=== PATIENT | female | born 1995 | race Caucasian/White ===

== ENCOUNTER 2020-02-04 13:40 | Outpatient (RCR) | payer OTHER, MEDICAID, SELFPAY | END 2020-05-02 23:59 | disposition home or self-care (01) | LOC: ANHLAB 13:40 | PROVIDERS: PCP Nurse Practitioner Family; Visit Provider Advanced Practice Midwife | DX: O20.0 Threatened abortion (principal); Z3A.00 Weeks of gestation of pregnancy not specified | CPT/HCPCS: 36415; 84702 ==

== ENCOUNTER 2020-02-14 10:12 | Emergency (ER) | payer OTHER, MEDICAID, SELFPAY ==
[2020-02-14 10:24] VITALS: BP 140/88; PULSE 122; RESP 18; TEMP 36.4; O2SAT 100
[2020-02-14 10:29] VITALS: BP 140/88; BP 148/95; BP 164/111; PULSE 120; PULSE 125; PULSE 133
[2020-02-14 10:48] LABS: Basophils Percent Auto 0.4 % (0.2-1.2); Eosinophils Percent Auto 0.3 % (0-4.4); Hematocrit 36.6 % (37.0-47.0); Hemoglobin 11.6 g/dL (12.0-15.0); Immature Granulocyte Absolute 0.02 K/mm3 (0.00-0.031); Immature Granulocyte Percent A 0.3 % (0-0.5); Lymphocytes Absolute Auto 1.97 K/mm3 (0.9-3.2); Lymphocytes Percent Auto 24.8 % (18.3-44.2); Mean Corpuscular HGB Conc 31.7 g/dl (32-36); Mean Corpuscular Hemoglobin 26.2 pg (26-34); Mean Corpuscular Volume 82.8 fl (80-100); Mean Platelet Volume 9.6 fl (7.4-10.4); Monocytes Absolute Auto 0.3 K/mm3 (0.1-0.6); Monocytes Percent Auto 4.2 % (2.6-8.5); Neutrophils Absolute Auto 5.6 K/mm3 (1.3-6.7); Platelet Count Result 341 k/mm3 (150-375); Red Blood Count 4.42 M/mm3 (4.2-5.4); White Blood Count 7.9 K/mm3 (4.5-10.0)
--- NOTE | 2020-02-14 11:11 | PC.NURSE ---
received report from Jennifer DA SILVA. patient here with vaginal bleeding and miscarriage. patient was 8 weeks per her report. provider here has discussed patient with her current OB. had ultrasound done in their office yesterday. see notes. no change in condition. alert. oriented. resting on stretcher.
--- NOTE | 2020-02-14 12:02 | ED.ABDPAIN ---
HPI - Abdominal Pain General Chief Complaint: Vaginal Bleeding <Vin Paulino PA-C - Last Filed: 02/14/20 17:58> Stated Complaint: 8 weeks /bleeding/lightheaded <Vin Paulino PA-C - Last Filed: 02/14/20 17:58> Time Seen by Provider: 02/14/20 10:14 <Vin Paulino PA-C - Last Filed: 02/14/20 17:58> Source: patient <Vin Paulino PA-C - Last Filed: 02/14/20 17:58> Mode of arrival: ambulatory <Vin Paulino PA-C - Last Filed: 02/14/20 17:58> Limitations: no limitations <Vin Paulino PA-C - Last Filed: 02/14/20 17:58> History of Present Illness HPI narrative: Patient presents for dark vaginal bleeding and cramping. She states she was seen at [facility] [place] 1 week ago and was told that she did not have growth and was having a miscarriage. She was prescribed Cytotec which she took Thursday and began having worsening cramps and bleeding. She states Thursday and Thursday she had more bleeding but has not noticed large pieces of tissue or large blood clots. She states the bleeding is minimal today but dark and she has had more cramping which alarmed her and made her feel lightheaded, panicked and momentarily short of breath. Which resolved completely once she calmed down. Patient states she is and this is her 4th miscarriage but the other was by d&c and two natural miscarriages.She states her OBGYN is Dr Long. . <Vin Paulino PA-C - Last Filed: 02/14/20 17:58> Related Data Allergies/Adverse Reactions: Allergies Allergy/AdvReac Type Severity Reaction Status Date / Time No Known Allergies Allergy Verified 02/14/20 10:30 <Vin Paulino PA-C - Last Filed: 02/14/20 17:58> Review of Systems Review of Systems: Narrative: CONSTITUTIONAL: Reports feeling light headed Denies fever, chills, or sweats. EYES: Denies visual changes, redness, or discharge. ENT: Denies rhinorrhea, congestion, sore throat, or otalgia. CARDIOVASCULAR: Denies chest pain, palpitations, or edema. RESPIRATORY: Denies cough or dyspnea. GASTROINTESTINAL: Denies abdominal pain, nausea, vomiting, or diarrhea. GENITOURINARY: Reports vaginal bleeding and pelvic cramping Denies dysuria or hematuria. SKIN: Denies rash or itching. MUSCULOSKELETAL: Denies back pain, myalgia, or joint pain NEUROLOGIC: Denies headache, numbness, dizziness, or weakness. PSYCHIATRIC: Denies anxiety or depression. <Vin Paulino PA-C - Last Filed: 02/14/20 17:58> Exam Narrative: Exam Narrative: GENERAL: Well-appearing, well-nourished. HEAD: Normocephalic, atraumatic. EYES: PERRLA and EOMI. NECK: Supple. No adenopathy or masses. No vertebral tenderness or loss of ROM. CHEST: Clear to auscultation. No respiratory distress. No wheezes rales or rhonchi HEART: Regular rate and rhythm. Normal peripheral pulses. ABDOMEN: Soft, nontender, nondistended, normal active bowel sounds. No bruises noted. PELVIC:Cervix open minimally. Dark blood and mucus coming from cervix no blood clots or large pieces of tissue appreciated expelling the pelvis or in vaginal canal. Exam tender for patient. EXTREMITIES: No acute changes in ROM. No edema. SKIN: Warm, dry, no rash. NEURO: No focal deficits. Alert and oriented x3. PSYCH: Normal mood and affect. <Vin Paulino PA-C - Last Filed: 02/14/20 17:58> Course Vital Signs Vital signs: Vital Signs Temperature 97.6 F 02/14/20 10:24 Pulse Rate 122 H 02/14/20 10:24 Respiratory Rate 18 02/14/20 10:24 Blood Pressure 140/88 02/14/20 10:24 Pulse Oximetry 100 02/14/20 10:24 Temperature 97.6 F 02/14/20 10:24 Pulse Rate 88 02/14/20 13:18 Respiratory Rate 16 02/14/20 13:18 Blood Pressure 131/83 02/14/20 13:18 Pulse Oximetry 98 02/14/20 13:18 <Vin Paulino PA-C - Last Filed: 02/14/20 17:58> Vital Signs Temperature 97.6 F 02/14/20 10:24 Pulse Rate 122 H 02/14/20 10:24 Respiratory Rate 18 02/14/20 10:24
[2020-02-14] MEDS: ONDANSETRON INJ 4 MG/2 ML VIAL IV PUSH (12:09)
[2020-02-14] MEDS: KETOROLAC 30 MG/ML VIAL (*BKC) (12:39)
[2020-02-14 13:18] VITALS: BP 131/83; PULSE 88; RESP 16; O2SAT 98
== END 2020-02-14 13:37 | disposition home or self-care (01) ==
PROVIDERS: Physician Assistant; Emergency Provider General Practice; PCP Nurse Practitioner Family
DX: O03.4 Incomplete spontaneous abortion without complication (principal)
CPT/HCPCS: 36415; 84702; 85025; 85461; 96365; 96375; 99284; J0131; J1885; J2405

== ENCOUNTER 2020-02-22 00:30 | Day surgery (SDC) | payer OTHER, MEDICAID, SELFPAY ==
[2020-02-21 09:19] VITALS: BMI 52.2
--- NOTE | 2020-02-21 09:37 | WPDANESEPPF ---
Anes - Initial Pre Proc Eval Procedure: Operation Date: 02/22/20 08:30 Proposed Procedures p Suction Dilatation and Curettage - Omaira Long MD Date/Time: 02/21/20 09:37 Surgeon: Omaira Long MD Pre Op Diagnosis: missed AB Patient Data Age: 24 Gender: F Height: 1.63 m Weight: 138.2 kg Allergies Allergy/AdvReac Type Severity Reaction Status Date / Time No Known Allergies Allergy Verified 02/22/20 06:59 Home Medications Medication Instructions Recorded Confirmed Type No Home Medications 02/21/20 02/22/20 History Patient hx anesthesia problems: none Family hx anesthesia problems: none [facility] Past Medical History Medical History (Updated 02/21/20 @ 09:38 by Sim White MD) Bipolar 1 disorder Depression HTN (hypertension) Morbid obesity with BMI of 50.0-59.9, adult Social History Social History Years smoked: 3 Smoking status: Current every day smoker Tobacco type: cigarettes Living arrangements: with family Spiritual care concerns: No Anes - Eval Final PreProcedure Day of Procedure 02/21/20 09:37 Patient weight: super morbidly obese Heart: regular rate and rhythm Lungs: clear to auscultation and normal air movement Airway: Mallampati scale class II Neurological: alert and oriented Last oral intake: >/= 8 hours ASA classification: III Emergent: no Anesthetic plan: proceed Anesthesia type and monitoring: general LMA and ETT Informed Consent: The patient's anesthetic plan and its attendant risks and benefits were discussed with the patient/family/POA. Questions were solicited and answers provided to the satisfaction of the patient/family/POA.
[2020-02-22] VITALS (7 sets, daily range): BP systolic 95–119; BP diastolic 47–58; PULSE 98–113; RESP 16–27; TEMP 36.4–37; O2SAT 96–100
[2020-02-22] MEDS: ACETAMINOPHEN 500 MG TABLET 1000 MG PO (07:39)
[2020-02-22] MEDS: LACTATED RINGERS 1,000 ML 30 ML IV CONT (07:39)
--- NOTE | 2020-02-22 08:04 | PM.IMHP ---
H&P: HPI History of Present Illness Date/Time: 02/22/20 08:04 Chief complaint: missed AB Narrative: Mora Trent is a 24 year old female now with 4 consecutive miscarriages. Failed cytotec x2 this time, US on Thursday showed retained POC and she has had continued light bleeding and cramping. Opos. 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 Review of Systems Review of Systems: All systems reviewed & are unremarkable except as noted in HPI and below (HPI) [facility] Past Medical History Medical History Bipolar 1 disorder Depression HTN (hypertension) Morbid obesity with BMI of 50.0-59.9, adult Social History Social History Years smoked: 3 Smoking status: Current every day smoker Tobacco type: cigarettes Living arrangements: with family Spiritual care concerns: No Meds Home Medications and Allergies Home Medications Medication Instructions Recorded Confirmed Type No Home Medications 02/21/20 02/22/20 History Allergies Allergy/AdvReac Type Severity Reaction Status Date / Time No Known Allergies Allergy Verified 02/22/20 06:59 Vital Signs Vital Signs - 24 hr 02/22/20 06:45 Temperature 98.6 F Pulse Rate 111 H Respiratory Rate 18 Blood Pressure 119/52 L Pulse Oximetry 100 Exam Const: General: no acute distress Neck: Neck: no JVD Thyroid: thyroid normal Resp: Auscultation: clear to auscultation bilaterally Cardio: Rate: regular rate Rhythm: regular rhythm GI: GI Palp: Yes Soft to palpation : Other: deferred Skin: General skin exam: normal color Extrem: General: normal to inspection Psych: Mental Status: mental status grossly normal Affect: normal affect Assessment and Plan Additional Plan Discussed RBA of D and C including bleeding, infection, perforation, scarring, retained POC. All questions answered. Will proceed O pos- no Rhogam needed doxy periop FU 1 week
--- NOTE | 2020-02-22 08:10 | P.OP_ITS ---
Procedure Note - Detailed Date of procedure: 02/22/20 Pre-op diagnosis: missed AB Post-op diagnosis: same Procedure performed: suction D and C Description of procedure: The patient was taken to the operating room and placed in dorsal lithotomy position. She received anesthesia per above. She was placed in stirrups and prepped and draped in the usual fashion. A bimanual exam showed a normal anteverted uterus, approximately 7w size. A bivalve speculum was introduced into the vagina. The anterior lip of the cervix was grasped with a single tooth tenaculum. The cervix was dilated in serial fashion to accomodate a #7 curved curette. The suction curette was tested outside of the patient and found to be working appropriately. The curette was then gently advanced into the uterine cavity. Several passes were made removing all products of conception. Once five passes were made obtaining no further products, the procedure was complete. The specimen was sent to pathology, including cytogenetics. The tenaculum was removed and hemostasis was noted after pressure. The speculum was removed. The patient tolerated the procedure well and was taken to the recovery room in stable condition. Anesthesia: GETA Surgeon: Omaira Long MD Associate Relations Specialist: none Estimated blood loss (mL): 10 Drains: No Packing: No Pathology: yes Complications: No immediate complications Condition: stable Disposition: same day Findings:
[2020-02-22] MEDS: KETOROLAC 30 MG/ML VIAL (*BKC) IM (08:51)
[2020-02-22] MEDS: ONDANSETRON INJ 4 MG/2 ML VIAL IV PUSH (09:04)
[2020-02-22] MEDS: fentaNYL CITRATE INJ (*CRX) 100 MCG/2 ML VIAL 25 MCG IV PUSH ×2 (09:08→09:16)
[2020-02-22] MEDS: HYDROcodone/acetaminophen (*CRX) 5-325 MG TABLET 1 TAB PO (10:48)
== END 2020-02-22 10:55 | disposition home or self-care (01) ==
PROVIDERS: PCP Nurse Practitioner Family; Visit Provider Obstetrics & Gynecology
PROC: (CPT 59820; principal; 2020-02-22 08:30)
DX: O02.1 Missed abortion (principal); I10 Essential (primary) hypertension; F31.9 Bipolar disorder, unspecified; F17.210 Nicotine dependence, cigarettes, uncomplicated
CPT/HCPCS: 59820; 88305; A9270; J0330; J1100; J1885; J2250; J2405; J2704; J3010; J7120

== ENCOUNTER 2020-07-01 10:23 | Emergency (ER) | payer OTHER, MEDICAID, SELFPAY ==
[2020-07-01 10:40] VITALS: BP 183/98; PULSE 124; RESP 18; TEMP 37.3; O2SAT 100
--- NOTE | 2020-07-01 11:07 | ED.GENADULT ---
HPI - General Adult General Chief complaint: Back Pain/Injury Stated complaint: right side lower back pain Time Seen by Provider: 07/01/20 11:09 Source: patient and RN notes reviewed Mode of arrival: ambulatory Limitations: no limitations History of Present Illness HPI narrative: 24-year-old female presents with complaints of right lower back pain for the past 3 days. Mora reports increasing symptoms daily. Naproxen and Flexeril without relief. Denies new injuries or falls. Denies radiating pain, numbness, or tingling. Denies fever or chills. No upper or lower extremity pain or weakness. Exacerbating factors consist of prolong standing and bending. Denies nausea, vomiting, or abdominal pain. Tolerating po intake well. Denies problems with urinating or having a bowel movement, LBM on 06/30/2020 per patient and normal. No flank pain, hematuria, or dysuria. LMP 06/24/2020. Remains active. The patient reports she have not been diagnosed with COVID-19. The patient reports she is not waiting for the results of a COVID-19 lab test. The patient reports she do not have weakness or fatigue. The patient reports she do not have a new or worsening cough or shortness of breath. Denies chest pain. The patient reports she do not have any rhinorrhea, congestion, sore throat, loss of taste or smell, and diarrhea. Denies recent traveling. Denies concerns for COVID-19 or exposures been home with limited outdoor exposure except for essential household needs and return home. At this time, patient is not suspected of having COVID-19. Some parts of this dictation were generated by voice recognition software and may contain typographical and/or grammatical inaccuracies. Related Data Allergies Allergy/AdvReac Type Severity Reaction Status Date / Time No Known Allergies Allergy Verified 07/01/20 10:31 Review of Systems Review of Systems: Narrative: CONSTITUTIONAL: Denies fever, chills, sweats. EYES: Denies visual changes, redness, discharge. ENT: Denies rhinorrhea, congestion, sore throat, otalgia. CARDIOVASCULAR: Denies chest pain, palpitations, edema. RESPIRATORY: Denies dyspnea, wheezing, cough. GASTROINTESTINAL: Denies abdominal pain, nausea, vomiting, diarrhea. GENITOURINARY: Denies dysuria, hematuria, abnormal discharge. SKIN: Denies rash or itching. MUSCULOSKELETAL: Complains of RT lower back pain. Denies joint pain or myalgia. NEUROLOGIC: Denies numbness or focal weakness. PSYCHIATRIC: Denies anxiety or depression. All systems reviewed & are unremarkable except as noted in HPI and below. [facility] Past Medical History Medical History (Updated 07/02/20 @ 00:00 by Alfonso Rodriguez) Bipolar 1 disorder delivery delivered Depression HTN (hypertension) Morbid obesity with BMI of 50.0-59.9, adult Surgical History Surgical History (Updated 07/01/20 @ 11:26 by ALAINA Macias) H/O section 2015 History of cholecystectomy Hx of laparoscopic gastric banding 2017 Family History Family History (Updated 07/01/20 @ 11:25 by ALAINA Macias) Father Hypercholesteremia Mother Alive and well Social History Social History (Updated 07/01/20 @ 11:26 by ALAINA Macias) Smoking packs per day: 0.5 Smoking cigarettes per day: 10.0 Years smoked: 4 Smoking pack-years: 2.00 Smoking status: Current every day smoker Tobacco type: cigarettes Second hand tobacco smoke exposure: No Alcohol intake: current Substance use: never Living arrangements: with family Occupation/Education: unemployed Gender identity (if verbalized by the patient): Female Sexual Orientation (if Verbalized by the Patient): Straight or Heterosexual Spiritual care concerns: No Comments At time of signature, agree with nurse past medical, surgical, social, and family history. There is no relevant family history pertinent to the presenting complaint. Exam Narrative: Exam Narrative: GENERA
[2020-07-01] MEDS: KETOROLAC (*BKC) 60 MG/2 ML VIAL IM (11:18)
[2020-07-01 11:26] VITALS: BP 118/76; PULSE 82
== END 2020-07-01 11:44 | disposition home or self-care (01) ==
PROVIDERS: Emergency Provider Nurse Practitioner Family; PCP Nurse Practitioner Family
DX: M54.5 Low back pain (principal); F17.219 Nicotine dependence, cigarettes, with unspecified nicotine-induced disorders; I10 Essential (primary) hypertension; E66.01 Morbid (severe) obesity due to excess calories; Z68.41 Body mass index [BMI] 40.0-44.9, adult
CPT/HCPCS: 96372; 99213; G0463; J1885

== ENCOUNTER 2020-08-13 09:32 | Emergency (ER) | payer OTHER, MEDICAID, SELFPAY ==
[2020-08-13 09:37] VITALS: BP 135/81; PULSE 116; RESP 20; TEMP 36.9; O2SAT 100
--- NOTE | 2020-08-13 10:08 | ED.DENTAL ---
HPI - Dental/Oral General Chief complaint: Dental/Oral Stated complaint: tooth pain Time Seen by Provider: 08/13/20 10:08 Source: patient Mode of arrival: ambulatory Limitations: no limitations History of Present Illness HPI Narrative: Mora Richardson is a 24 yo male with PMH of bipolar depression, HTN, who comes [facility] with dental pain in the lower right molar, tooth #30. States this bothered her for months but is gotten worse the last day or so and will go to in dentist that is should insurance cover but has to call for an appointment tomorrow Related Data Home Medications Medication Instructions Recorded Confirmed No Home Medications 08/13/20 08/13/20 Allergies Allergy/AdvReac Type Severity Reaction Status Date / Time No Known Allergies Allergy Verified 08/13/20 09:47 Review of Systems Review of Systems: Narrative: CONSTITUTIONAL: Denies fever, chills, sweats. EYES: Denies visual changes, redness, discharge. ENT: Denies rhinorrhea, congestion, sore throat, otalgia. CARDIOVASCULAR: Denies chest pain, palpitations, edema. RESPIRATORY: Denies dyspnea, wheezing, cough GASTROINTESTINAL: Denies abdominal pain, nausea, vomiting, diarrhea. GENITOURINARY: Denies dysuria, hematuria, abnormal discharge SKIN: Denies rash or itching. NEUROLOGIC: Denies numbness, or focal weakness. PSYCHIATRIC: Denies anxiety or depression. Dental pain-tooth 30 PMFSH Past Medical History Medical History Bipolar 1 disorder delivery delivered Depression HTN (hypertension) Morbid obesity with BMI of 50.0-59.9, adult Surgical History Surgical History H/O section 2015 History of cholecystectomy Hx of laparoscopic gastric banding 2017 Family History Family History Father Hypercholesteremia Mother Alive and well Social History Social History Smoking packs per day: 0.5 Smoking cigarettes per day: 10.0 Years smoked: 4 Smoking pack-years: 2.00 Smoking status: Current every day smoker Tobacco type: cigarettes Second hand tobacco smoke exposure: No Alcohol intake: current Substance use: never Gender identity (if verbalized by the patient): Female Spiritual care concerns: No Comments At time of signature, I agree with nursing past medical, surgical, social and family history. There is no relevant family history pertinent to the presenting complaint. Exam Narrative: Exam Narrative: GENERAL: This is a well-nourished, well-developed patient, in mild distress. HEAD: normocephalic, atraumatic. EYES: Sclera clear/white. Vision is grossly intact. EARS: External ears normal, Hearing grossly intact. NOSE: External nose normal without nasal discharge, nares without redness, no rhinorrhea. THROAT: Mucous membranes moist, posterior pharynx pink, dentition of teeth, complaining of right lower rear molar pain, tooth has filling, may be cracked NECK: Neck supple, non-tender CARDIOVASCULAR: Regular rate and rhythm without murmurs, gallops, or rubs. RESPIRATORY: Clear to auscultation. Breath sounds equal bilaterally. No wheezes, rales, or rhonchi. GASTROINTESTINAL: Abdomen soft, non-tender, SKIN: warm, intact with no suspicious lesions or rash, good texture and turgor. NEURO: awake, alert, and oriented to person, place and time. There were no obvious focal neurologic abnormalities. Steady gait EXTREMITIES: Normal range of motion. BACK: Nontender without deformity Course Course Emergency Course: Patient complaining of dental pain Prednisone, Tylenol 3-is currently already using lidocaine gel ibuprofen or Naprosyn Patient has insurance and will call dentist tomorrow to set up appointment Vital Signs Vital signs: Vital Signs Temperature 98.4 F 08/13/20 09:37 Pulse Rate
== END 2020-08-13 10:30 | disposition home or self-care (01) ==
PROVIDERS: Emergency Provider Nurse Practitioner; PCP Nurse Practitioner Family
DX: K04.7 Periapical abscess without sinus (principal); F17.210 Nicotine dependence, cigarettes, uncomplicated; I10 Essential (primary) hypertension; E66.01 Morbid (severe) obesity due to excess calories; Z68.43 Body mass index [BMI] 50.0-59.9, adult
CPT/HCPCS: 99213; G0463

== ENCOUNTER 2020-08-17 10:04 | Emergency (ER) | payer OTHER, MEDICAID, SELFPAY ==
[2020-08-17 10:15] VITALS: BP 143/86; PULSE 118; RESP 18; TEMP 37.2; O2SAT 100
--- NOTE | 2020-08-17 10:52 | ED.EAR ---
HPI - Ear Problem General Chief complaint: Ear Stated complaint: Toothache Time Seen by Provider: 08/17/20 10:50 Source: patient Mode of arrival: ambulatory Limitations: no limitations History of Present Illness HPI Narrative: Mora Trent is a 24 yo female with a PMH of HTN [facility] complaints of tooth pain that has now moved to her ear and across to her right side of her face, she is also complaining of burning with urinating. She states the penicillin she started on Thursday has not helped her tooth pain or swelling at all Related Data Allergies Allergy/AdvReac Type Severity Reaction Status Date / Time No Known Allergies Allergy Verified 08/17/20 10:21 Review of Systems Review of Systems: Narrative: CONSTITUTIONAL: Denies fever, chills, sweats. EYES: Denies visual changes, redness, discharge. ENT: Denies rhinorrhea, congestion, sore throat, right otalgia. Mouth: Tooth pain and right lower molar with swelling over the right side of her face CARDIOVASCULAR: Denies chest pain, palpitations, edema. RESPIRATORY: Denies dyspnea, wheezing, cough GASTROINTESTINAL: Denies abdominal pain, nausea, vomiting, diarrhea. GENITOURINARY: has dysuria, no hematuria, abnormal discharge SKIN: Denies rash or itching. NEUROLOGIC: Denies numbness, or focal weakness. PSYCHIATRIC: Denies anxiety or depression. [facility] Past Medical History Medical History Bipolar 1 disorder delivery delivered Depression HTN (hypertension) Morbid obesity with BMI of 50.0-59.9, adult Surgical History Surgical History H/O section 2015 History of cholecystectomy Hx of laparoscopic gastric banding 2017 Family History Family History Father Hypercholesteremia Mother Alive and well Social History Social History Smoking packs per day: 0.5 Smoking cigarettes per day: 10.0 Years smoked: 4 Smoking pack-years: 2.00 Smoking status: Current every day smoker Tobacco type: cigarettes Second hand tobacco smoke exposure: No Alcohol intake: current Substance use: never Gender identity (if verbalized by the patient): Female Spiritual care concerns: No Comments At time of signature, I agree with nursing past medical, surgical, social and family history. There is no relevant family history pertinent to the presenting complaint. Exam Narrative: Exam Narrative: GENERAL: This is a well-nourished, well-developed patient, in moderate distress. HEAD: normocephalic, atraumatic. EYES: Sclera clear/white. Vision is grossly intact. EARS: External ears normal, auditory canals clear and without drainage, Hearing grossly intact. NOSE: External nose normal without nasal discharge, nares without redness, no rhinorrhea. Mouth: Right lower molar pain with swelling up to midline of mouth and tender under ear, no submandibular lymph nodes THROAT: Mucous membranes moist, posterior pharynx erythema NECK: Neck supple, mild tender on R CARDIOVASCULAR: Tachycardia rate and rhythm without murmurs, gallops, or rubs. RESPIRATORY: Clear to auscultation. Breath sounds equal bilaterally. No wheezes, rales, or rhonchi. GASTROINTESTINAL: Abdomen soft, non-tender, SKIN: warm, intact with no suspicious lesions or rash, good texture and turgor. NEURO: awake, alert, and oriented to person, place and time. There were no obvious focal neurologic abnormalities. Steady gait EXTREMITIES: Normal range of motion. BACK: Nontender without deformity Course Course Emergency Course: Patient states that she has burning with urination, tooth pain still on right with facial swelling Started on Cipro 500 mg x 3 days for dysuria, UA dip negative for leukocytes and nitrites Change antibiotic for tooth pain to clindamycin 3
== END 2020-08-17 11:17 | disposition home or self-care (01) ==
PROVIDERS: Emergency Provider Nurse Practitioner; PCP Nurse Practitioner Family
DX: K08.89 Other specified disorders of teeth and supporting structures (principal); R30.0 Dysuria; R22.0 Localized swelling, mass and lump, head; F17.210 Nicotine dependence, cigarettes, uncomplicated; I10 Essential (primary) hypertension; E66.01 Morbid (severe) obesity due to excess calories; Z68.43 Body mass index [BMI] 50.0-59.9, adult; Z98.84 Bariatric surgery status
CPT/HCPCS: 81003; 99213; G0463

== ENCOUNTER 2020-11-20 11:50 | Emergency (ER) | payer OTHER, MEDICAID, SELFPAY ==
[2020-11-20 12:12] VITALS: BP 122/68; PULSE 92; RESP 20; TEMP 36.8; O2SAT 100
--- NOTE | 2020-11-20 14:04 | ED.DENTAL ---
HPI - Dental/Oral General Chief complaint: Dental/Oral Stated complaint: tooth pain Time Seen by Provider: 11/20/20 13:55 Source: patient and RN notes reviewed Mode of arrival: ambulatory Limitations: no limitations History of Present Illness HPI Narrative: 24 year old female who presents to clinic with complaints of pain to last molars on left top and bottom for the past few days. Patient states that she has hoes in the teeth and is unable to get into a dentist. Patient denies any difficulty with swallowing or any problems with her breathing. Patient states that she is in alot of pain and has been taking Ibuprofen for her discomfort.Patient has had past history of gastric sleeve in 2017. MD Complaint: tooth pain Location: Tooth # (16 and 17) Severity scale (1-10): 6 Related Data Home Medications Medication Instructions Recorded Confirmed trazodone 50 mg PO HS 11/20/20 11/20/20 Allergies Allergy/AdvReac Type Severity Reaction Status Date / Time No Known Allergies Allergy Verified 08/17/20 10:21 Review of Systems Review of Systems: CONSTITUTIONAL: Denies fever, chills, or sweats. EYES: Denies visual changes, redness, or discharge. ENT: Denies rhinorrhea, congestion, sore throat, or otalgia.Dentalgia to left most posterior molars up and bottom teeth. CARDIOVASCULAR: Denies chest pain, palpitations, or edema. RESPIRATORY: Denies cough or dyspnea. GASTROINTESTINAL: Denies abdominal pain, nausea, vomiting, or diarrhea. GENITOURINARY: Denies dysuria or hematuria. SKIN: Denies rash or itching. MUSCULOSKELETAL: Denies back pain, joint pain, or myalgia. NEUROLOGIC: Denies headache, numbness, or weakness. PSYCHIATRIC: Positive history of anxiety or depression. All systems reviewed & are unremarkable except as noted in HPI and below PMFSH Past Medical History Medical History Bipolar 1 disorder delivery delivered Depression HTN (hypertension) Morbid obesity with BMI of 50.0-59.9, adult Surgical History Surgical History H/O section 2015 History of cholecystectomy Hx of laparoscopic gastric banding 2017 Family History Family History (Updated 11/25/20 @ 21:10 by Sheri Castillo NP) Father Hypercholesteremia Mother Alive and well Grandparent Malignant neoplasm of prostate Social History Social History Smoking packs per day: 0.5 Smoking cigarettes per day: 10.0 Years smoked: 4 Smoking pack-years: 2.00 Smoking status: Current every day smoker Tobacco type: cigarettes Second hand tobacco smoke exposure: No Alcohol intake: current Substance use: never Gender identity (if verbalized by the patient): Female Sexual Orientation (if Verbalized by the Patient): Straight or Heterosexual Spiritual care concerns: No Comments At time of signature, agree with nursing past medical, surgical, social and family history. There is no relevant family history pertinent to the presenting complaint Exam Narrative: GENERAL: Well-appearing, well-nourished, and in no acute distress. HEAD: Normocephalic, atraumatic. EYES: PERRLA and EOMI. ENT: Nares clear, no rhinorrhea or epistaxis. Mucous membranes moist.TM's normal, throat pink with no lesions or exudates, no tonsil enlargement. Mp Tio angina noted, swelling of gums around left upper and lower last molars, no obvious abscess, decay noted with holes in teeth. NECK: Supple.no lymphadenopathy CHEST: Clear to auscultation. No respiratory distress.SAO2 100% on room air HEART: Regular rate and rhythm. No murmur heard. Normal peripheral pulses. ABDOMEN: Soft, nontender, nondistended, normal active bowel sounds. EXTREMITIES: Normal range of motion. No edema. SKIN: Warm, dry, no rash. NEURO: No focal deficits. Alert and oriented x3. Course Vital Signs Vital signs: Vital S
== END 2020-11-20 14:18 | disposition home or self-care (01) ==
PROVIDERS: Emergency Provider Registered Nurse; PCP Nurse Practitioner Family
DX: K08.89 Other specified disorders of teeth and supporting structures (principal); F17.210 Nicotine dependence, cigarettes, uncomplicated; I10 Essential (primary) hypertension; E66.01 Morbid (severe) obesity due to excess calories; Z68.43 Body mass index [BMI] 50.0-59.9, adult; F32.9 Major depressive disorder, single episode, unspecified
CPT/HCPCS: 99213; G0463

== ENCOUNTER 2021-04-27 12:27 | Emergency (ER) | payer BC, SELFPAY ==
[2021-04-27 12:34] VITALS: BP 134/81; PULSE 112; RESP 20; TEMP 37.4; O2SAT 100
[2021-04-27 12:42] VITALS: BP 134/81; PULSE 112; RESP 20; TEMP 37.4; O2SAT 100
--- NOTE | 2021-04-27 12:42 | ED.BACK ---
HPI - Back Pain/Injury General Chief Complaint: Back Pain/Injury Stated Complaint: Back Pain Time Seen by Provider: 04/27/21 12:42 Source: patient and family History of Present Illness HPI Narrative: patient presents with left sided back pain patient states she lifted a heavy object yesterday. no numbness or tingling . no bowel or bladder problems. patient took an aleve this am with moderated amount of relief in pain and discomfort. No saddle anesthesia. Related Data Home Medications Medication Instructions Recorded Confirmed trazodone 150 mg PO HS 11/20/20 04/27/21 olanzapine 5 mg PO DAILY 04/27/21 04/27/21 Allergies Allergy/AdvReac Type Severity Reaction Status Date / Time No Known Allergies Allergy Verified 04/27/21 12:40 Review of Systems Review of Systems: CONSTITUTIONAL: Denies fever, chills, or sweats. EYES: Denies visual changes, redness, or discharge. ENT: Denies rhinorrhea, congestion, sore throat, or otalgia. CARDIOVASCULAR: Denies chest pain, palpitations, or edema. RESPIRATORY: Denies cough or dyspnea. GASTROINTESTINAL: Denies abdominal pain, nausea, vomiting, or diarrhea. GENITOURINARY: Denies dysuria or hematuria. SKIN: Denies rash or itching. MUSCULOSKELETAL: Denies back pain, joint pain, or myalgia. NEUROLOGIC: Denies headache, numbness, or weakness. PSYCHIATRIC: Denies anxiety or depression. [facility] Past Medical History Medical History Bipolar 1 disorder delivery delivered Depression HTN (hypertension) Morbid obesity with BMI of 50.0-59.9, adult Surgical History Surgical History H/O section 2015 History of cholecystectomy Hx of laparoscopic gastric banding 2017 Family History Family History (Updated 11/25/20 @ 21:10 by Sheri Castillo NP) Father Hypercholesteremia Mother Alive and well Grandparent Malignant neoplasm of prostate Social History Social History Smoking packs per day: 0.5 Smoking cigarettes per day: 10.0 Years smoked: 4 Smoking pack-years: 2.00 Smoking status: Current every day smoker Tobacco type: cigarettes Second hand tobacco smoke exposure: No Alcohol intake: current Substance use: never Gender identity (if verbalized by the patient): Female Sexual Orientation (if Verbalized by the Patient): Straight or Heterosexual Spiritual care concerns: No Comments At time of signature, agree with nursing past medical, surgical, social and family history. There is no relevant family history pertinent to the presenting complaint Exam Narrative: GENERAL: Well-appearing, well-nourished, and in no acute distress. HEAD: Normocephalic, atraumatic. EYES: PERRLA and EOMI. ENT: Nares clear, no rhinorrhea or epistaxis. Mucous membranes moist. NECK: Supple. CHEST: Clear to auscultation. No respiratory distress. HEART: Regular rate and rhythm. No murmur heard. Normal peripheral pulses. ABDOMEN: Soft, nontender, nondistended, normal active bowel sounds. EXTREMITIES: Normal range of motion. No edema. SPINE MIDLINE. NO CURVATURE APPARENT. NO VERTEBRAL POINT SPECIFIC TENDERNESS. NO DEFORMITY. NO STEP-OFFS. NORMAL LE STRENGTH BILATERALLY. NORMAL LE SENSATION BILATERALLY. ABLE TO WALK ON TOES AND HEELS WITH NORMAL DORSIFLEXION AND PLANTAR FLEXION STRENGTH. NO WEAKNESS OBSERVED WITH GAIT. LEFT PARASPINAL MUSCLE TENDERNESS FLEXION STRENGTH. NO WEAKNESS OBSERVED WITH GAIT. LEFT PARASPINAL MUSCLE TENDERNESS. LEFT SI JOINT TENDERNESS. FLEXION AND EXTENSION ROM NORMAL, ONLY SLIGHT LIMITATION. SKIN: Warm, dry, no rash. NEURO: No focal deficits. Alert and oriented x3. [place] Coma Scale Eye Opening: Spontaneous 4 Vel[place]quez Coma Scale Motor: Obeys Commands 6 [place] Coma Scale Verbal: Oriented 5 [place] Coma Scale Total 15 Course Course Level of Care: Express Care Visit
== END 2021-04-27 12:54 | disposition home or self-care (01) ==
PROVIDERS: Emergency Provider Nurse Practitioner Family
DX: S39.012A Strain of muscle, fascia and tendon of lower back, initial encounter (principal); X50.0XXA Overexertion from strenuous movement or load, initial encounter; M54.32 Sciatica, left side; I10 Essential (primary) hypertension; E66.01 Morbid (severe) obesity due to excess calories; Z68.43 Body mass index [BMI] 50.0-59.9, adult; F31.9 Bipolar disorder, unspecified; F17.210 Nicotine dependence, cigarettes, uncomplicated
CPT/HCPCS: 99213; G0463

== ENCOUNTER 2021-08-13 12:09 | Emergency (ER) | payer BC, SELFPAY ==
[2021-08-13 12:18] VITALS: BP 133/100; PULSE 86; RESP 20; TEMP 36.9; O2SAT 100
--- NOTE | 2021-08-13 13:19 | ED.DENTAL ---
HPI - Dental/Oral General Chief complaint: Dental/Oral Stated complaint: Toothache Time Seen by Provider: 08/13/21 13:15 Source: patient Mode of arrival: ambulatory Limitations: no limitations History of Present Illness HPI Narrative: 25 year old female who presents to [facility] care with complaints of left upper molar dental pain with swelling around tooth and reports intermittent formation of white blister type of lesion to the inner gum along the #14 tooth which will pop and drain pus, states drained this morning. Patient report that pain to #14 tooth and gum with redness since . Patient reports that she has been taking Tylenol, Ibuprofen and using Orajel. Patient states that she does smoke cigarettes about 1 pack daily, does not have dental insurance yet at present job. Patient denies any fevers, chills, or sweats, denies any facial swelling or any difficulty with her swallowing or breathing. MD Complaint: tooth pain Location: Tooth # (14) Onset (ago): day(s) (5) Severity: moderate Severity scale (1-10): 6 Treatment prior to arrival: topical analgesic and oral analgesic (Tylenol and ibuprofen) Related Data Home Medications Medication Instructions Recorded Confirmed trazodone 50 mg tablet 150 mg PO HS 11/20/20 08/13/21 clonidine HCl 0.1 mg tablet 0.1 tablet PO DAILY PRN Anxiety 08/13/21 08/13/21 quetiapine 25 mg tablet 25 tablet PO HS 08/13/21 08/13/21 Allergies Allergy/AdvReac Type Severity Reaction Status Date / Time No Known Allergies Allergy Verified 08/13/21 13:08 Review of Systems Review of Systems: CONSTITUTIONAL: Denies fever, chills, or sweats. EYES: Denies visual changes, redness, or discharge. ENT: Denies rhinorrhea, congestion, sore throat, or otalgia.positive for left upper back molar pain with intermittent draining lesion to inside gum near #14 tooth CARDIOVASCULAR: Denies chest pain, palpitations, or edema. RESPIRATORY: Denies cough or dyspnea. GASTROINTESTINAL: Denies abdominal pain, nausea, vomiting, or diarrhea. GENITOURINARY: Denies dysuria or hematuria. SKIN: Denies rash or itching. MUSCULOSKELETAL: Denies back pain, joint pain, or myalgia. NEUROLOGIC: Denies headache, numbness, or weakness. PSYCHIATRIC: Positive for history of anxiety or depression. [facility] Past Medical History Medical History (Updated 08/14/21 @ 00:00 by Alfonso Rodriguez) Bipolar 1 disorder delivery delivered Depression HTN (hypertension) Morbid obesity with BMI of 50.0-59.9, adult Surgical History Surgical History (Updated 08/14/21 @ 10:36 by Sheri Castillo NP) H/O section 2014 H/O dilation and curettage History of cholecystectomy Hx of laparoscopic gastric banding 2016 Family History Family History Father Hypercholesteremia Mother Alive and well Grandparent Malignant neoplasm of prostate Social History Social History Smoking packs per day: 0.5 Smoking cigarettes per day: 10.0 Years smoked: 4 Smoking pack-years: 2.00 Smoking status: Current every day smoker Tobacco type: cigarettes Second hand tobacco smoke exposure: No Alcohol intake: current Substance use: never Gender identity (if verbalized by the patient): Female Sexual Orientation (if Verbalized by the Patient): Straight or Heterosexual Spiritual care concerns: No Comments At time of signature, agree with nursing past medical, surgical, social and family history. There is no relevant family history pertinent to the presenting complaint Exam Narrative: GENERAL: Well-appearing, well-nourished,obese and in no acute distress. HEAD: Normocephalic, atraumatic. EYES: PERRLA and EOMI. ENT: Nares clear, no rhinorrhea or epistaxis. Mucous membranes moist.TM's normal with good light reflex, throat pink with no exudate or lesions no tonsil swelling. Swelling with redness of gum around left uppe
== END 2021-08-13 13:37 | disposition home or self-care (01) ==
PROVIDERS: Emergency Provider Registered Nurse
DX: K04.7 Periapical abscess without sinus (principal); F17.210 Nicotine dependence, cigarettes, uncomplicated; I10 Essential (primary) hypertension; E66.01 Morbid (severe) obesity due to excess calories; Z68.43 Body mass index [BMI] 50.0-59.9, adult; F31.9 Bipolar disorder, unspecified
CPT/HCPCS: 99213; G0463

== ENCOUNTER 2021-10-22 09:05 | Emergency (ER) | payer BC, SELFPAY ==
--- NOTE | ~2021-10-22 | XR_ITS ---
EXAMINATION: XR hip LT 1V w AP pelvis DATE: 10/22/2021 09:38 INDICATION: Pelvis injury and pain. TECHNIQUE: An anteroposterior view of the pelvis and 2 views of left hip were obtained. COMPARISON: None. FINDINGS: Bone alignment is normal. No fracture. There is mild left hip osteoarthritis characterized by tiny osteophytes. IMPRESSION: 1. Mild left hip osteoarthritis. Reviewed, dictated and finalized at location A.
--- NOTE | 2021-10-22 09:08 | ED.LOWEXIN ---
HPI - Extremity Injury (Lower) General Stated Complaint: Hip Injury Time Seen by Provider: 10/22/21 09:07 Source: patient Mode of arrival: ambulatory Limitations: no limitations History of Present Illness HPI Narrative: Ms. Trent is a 25-year-old female patient presenting to the clinic today with complaints of left hip pain. She reports that she has possibly popped her left hip out of place after falling in the rain. States she did side splits when falling. Related Data Home Medications Medication Instructions Recorded Confirmed trazodone 50 mg tablet 150 mg PO HS 11/20/20 08/13/21 Allergies Allergy/AdvReac Type Severity Reaction Status Date / Time No Known Allergies Allergy Verified 10/22/21 09:20 Review of Systems Review of Systems: Pertinent positives per HPI. Patient denies any fever, chills, rash, headache, visual changes, dizziness, cough, runny nose, sore throat, shortness of breath, chest pain, palpitations, nausea, vomiting, diarrhea, constipation, abdominal pain, or any urinary issues. [facility] Past Medical History Medical History (Updated 10/22/21 @ 09:44 by Dylon Pan, [employer]) Bipolar 1 disorder delivery delivered Depression HTN (hypertension) Morbid obesity with BMI of 50.0-59.9, adult Surgical History Surgical History (Updated 08/14/21 @ 10:36 by Sheri Castillo NP) H/O section 2014 H/O dilation and curettage History of cholecystectomy Hx of laparoscopic gastric banding 2017 Family History Family History Father Hypercholesteremia Mother Alive and well Grandparent Malignant neoplasm of prostate Social History Social History Smoking packs per day: 0.5 Smoking cigarettes per day: 10.0 Years smoked: 4 Smoking pack-years: 2.00 Smoking status: Current every day smoker Tobacco type: cigarettes Second hand tobacco smoke exposure: No Alcohol intake: current Substance use: never Gender identity (if verbalized by the patient): Female Sexual Orientation (if Verbalized by the Patient): Straight or Heterosexual Spiritual care concerns: No Comments At the time of my signature, I reviewed and agree with the nursing past medical, surgical, social, and family history. There is no relevant family history pertinent to the patient complaint. Exam Narrative: General: Well-developed,morbidly obese, in no apparent distress Head: Normocephalic, atraumatic. Cardio: Regular rate and rhythm, s1 and s2 normal, no murmur appreciated. Resp: Clear to auscultation bilaterally, no rhonchi, rales, wheezing or rubs. Musculoskeletal: No deformity, tender to palpation over the lateral hip, pain with hip flexion and internal rotation of the hip, muscle strength strong and equal, peripheral pulse strong, no edema, no cyanosis, walking on crutches Course Course Emergency Course: Portions of this record may have been created with voice recognition software. Level of Care: Express Care Visit Vital Signs Vital signs: Vital signs reviewed MDM - Extremity Injury (Lower) MDM Narrative Medical decision making narrative: At the time of visit patient is resting comfortably on the exam table. Imaging Data Attestation: I personally reviewed and interpreted this imaging study as follows: My impression: X-ray negative for any fracture or malalignment of the left hip/pelvis Radiologist's impression: Express [address] [place] [id number] XRay Report Signed Patient: Mora Trent : 1995 MR#: [id number] Age/Sex: 25 / F Acct:[id number] Loc: [facility]? ? ADM Date: 10/22/21Attending Dr: Ordering Physician: Dylon Pan APRN Date of Service: 10/22/21 Procedure(s): XR hip LT 1V w AP pelvis Accession Number(s): [id number] cc: Dylon Pan AP
[2021-10-22 09:10] VITALS: BP 151/81; PULSE 130; RESP 20; TEMP 36.2; O2SAT 100
== END 2021-10-22 09:50 | disposition home or self-care (01) ==
PROVIDERS: Emergency Provider Nurse Practitioner Family
DX: S76.012A Strain of muscle, fascia and tendon of left hip, initial encounter (principal); W19.XXXA Unspecified fall, initial encounter; I10 Essential (primary) hypertension; E66.01 Morbid (severe) obesity due to excess calories; Z68.43 Body mass index [BMI] 50.0-59.9, adult; F32.A Depression, unspecified
CPT/HCPCS: 73501; 99213; G0463

== ENCOUNTER 2022-03-17 16:41 | Emergency (ER) | payer BC, SELFPAY ==
[2022-03-17 16:45] VITALS: BP 153/88; PULSE 115; RESP 20; TEMP 37.1; O2SAT 100
--- NOTE | 2022-03-17 17:37 | ED.GENADULT ---
HPI - General Adult General Chief complaint: Upper Respiratory Infection Stated complaint: sore throat Source: patient Mode of arrival: ambulatory Limitations: no limitations History of Present Illness HPI narrative: Patient presents for evaluation of sore throat for the past two days. 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 She has a mild cough. She denies fever, chills, nausea, vomiting, diarrhea. She does smoke. She has had COVID multiple times in the past. She is taking some DayQuil for symptoms without considerable improvement thereafter. Related Data Home Medications Medication Instructions Recorded Confirmed trazodone 50 mg tablet 150 mg PO HS 11/20/20 10/22/21 gabapentin 300 mg capsule mg 03/17/22 lithium carbonate 450 mg mg PO 03/17/22 tablet,extended release propranolol 10 mg tablet mg 03/17/22 quetiapine 300 mg tablet mg 03/17/22 Allergies Allergy/AdvReac Type Severity Reaction Status Date / Time No Known Allergies Allergy Verified 10/22/21 09:20 Review of Systems Review of Systems: CONSTITUTIONAL: Denies fever, chills, or sweats. EYES: Denies visual changes, redness, or discharge. ENT: Reports sore throat. Denies rhinorrhea, congestion, or otalgia. CARDIOVASCULAR: Denies chest pain, palpitations, or edema. RESPIRATORY: Reports mild cough. Denies dyspnea. GASTROINTESTINAL: Denies abdominal pain, nausea, vomiting, or diarrhea. GENITOURINARY: Denies dysuria or hematuria. SKIN: Denies rash or itching. MUSCULOSKELETAL: Denies back pain, joint pain, or myalgia. NEUROLOGIC: Denies headache, numbness, dizziness, or weakness. PSYCHIATRIC: Denies anxiety or depression. [facility] Past Medical History Medical History Bipolar 1 disorder delivery delivered Depression HTN (hypertension) Morbid obesity with BMI of 50.0-59.9, adult Surgical History Surgical History H/O section 2014 H/O dilation and curettage History of cholecystectomy Hx of laparoscopic gastric banding 2016 Family History Family History Father Hypercholesteremia Mother Alive and well Grandparent Malignant neoplasm of prostate Social History Social History (Updated 03/17/22 @ 17:39 by Maxim York, [facility], ) Smoking packs per day: 1 Smoking cigarettes per day: 20.0 Years smoked: 4 Smoking pack-years: 4.00 Smoking status: Current every day smoker Tobacco type: cigarettes Second hand tobacco smoke exposure: No Alcohol intake: current Substance use: never Gender identity (if verbalized by the patient): Female Sexual Orientation (if Verbalized by the Patient): Straight or Heterosexual Spiritual care concerns: No Exam Narrative: GENERAL: Well-appearing, well-nourished, and in no acute distress. HEAD: Normocephalic, atraumatic. EYES: PERRLA and EOMI. ENT: Nares clear, no rhinorrhea or epistaxis. Mucous membranes moist. Bilateral tonsillar enlargement with erythema. No exudate. Uvula is midline. Bilateral TMs pearly randhawa nonbulging NECK: Supple. No adenopathy or masses. No carotid bruits or JVD CHEST: Clear to auscultation. No respiratory distress. No wheezes rales or rhonchi HEART: Regular rate and rhythm. No murmur heard. Normal peripheral pulses. ABDOMEN: Soft, nontender, nondistended, normal active bowel sounds. EXTREMITIES: Normal range of motion. No edema. SKIN: Warm, dry, no rash. NEURO: No focal deficits. Alert and oriented x3. PSYCH: Normal mood and affect. Course Course Emergency Course: This is a 26-year-old female presenting for evaluation of sore throat with recent strep exposure. Rapid strep was negative. Will treat with amoxicillin due to recent exposures. Increase hydration. [id number] agents for symptom management. Follow up with primary provider. Go t
== END 2022-03-17 17:40 | disposition home or self-care (01) ==
PROVIDERS: Emergency Provider Nurse Practitioner
DX: J02.9 Acute pharyngitis, unspecified (principal); Z20.818 Contact with and (suspected) exposure to other bacterial communicable diseases; F17.210 Nicotine dependence, cigarettes, uncomplicated; I10 Essential (primary) hypertension; E66.01 Morbid (severe) obesity due to excess calories; Z68.43 Body mass index [BMI] 50.0-59.9, adult; F31.9 Bipolar disorder, unspecified
CPT/HCPCS: 87081; 87880; 99213; G0463

== ENCOUNTER 2023-03-02 13:24 | Emergency (ER) | payer BC, SELFPAY ==
[2023-03-02 13:36] VITALS: BP 150/93; PULSE 120; RESP 20; TEMP 37.1; O2SAT 100
--- NOTE | 2023-03-02 13:56 | ED.DENTAL ---
HPI - Dental/Oral General Chief complaint: Dental/Oral Stated complaint: Toothache Source: patient, RN notes reviewed and old records reviewed Mode of arrival: ambulatory Limitations: no limitations History of Present Illness HPI Narrative: 27-year-old female presents to [facility] Care with complaint of upper left dental pain this started approximately 2 weeks ago when her tooth broke. Patient states goes to [facility] in [place] but is unable to get in for a month or 2. Related Data Home Medications Medication Instructions Recorded Confirmed trazodone 50 mg tablet 150 mg PO HS 11/20/20 10/22/21 gabapentin 300 mg capsule mg 03/17/22 lithium carbonate 450 mg mg PO 03/17/22 tablet,extended release propranolol 10 mg tablet mg 03/17/22 quetiapine 300 mg tablet mg 03/17/22 docusate sodium 100 mg capsule mg PO 03/02/23 pantoprazole 20 mg tablet,delayed mg PO 03/02/23 release Allergies Allergy/AdvReac Type Severity Reaction Status Date / Time No Known Allergies Allergy Verified 03/02/23 14:05 Review of Systems Constitutional: Constitutional: Reports no additional constitutional complaints, Denies body ache(s), Denies chills, Denies fatigue, Denies fever(s) and Denies headache(s) Eyes: Eyes: Reports no additional eye complaints and Denies blurry vision ENT: Reports system reviewed and no additional complaints, except as documented, Reports dental pain, Denies vertigo, Denies dizziness, Denies ear discharge, Denies otalgia, Denies facial pain, Denies headache(s), Denies nasal congestion, Denies nasal discharge, Denies sinus pain, Denies sinus pressure and Denies sore throat Cardiovascular: Cardiovascular: Reports no additional cardiovascular complaints, Denies chest pain, Denies chest pain at rest, Denies rapid heart rate and Denies dyspnea Respiratory: Respiratory: Reports no additional respiratory complaints, Denies chest congestion, Denies cough, Denies pain on inspiration, Denies pain with cough and Denies dyspnea Gastrointestinal: Gastrointestinal: Denies abdominal pain, Denies diarrhea, Denies nausea and Denies vomiting Integumentary/Breasts: Skin/Breast: Denies rash Neurologic: Reports system reviewed and no additional complaints, except as documented, Denies vertigo, Denies dizziness and Denies headache(s) Endocrine: Endocrine: Denies fatigue PMFSH Past Medical History Medical History Bipolar 1 disorder delivery delivered Depression HTN (hypertension) Morbid obesity with BMI of 50.0-59.9, adult Surgical History Surgical History H/O section 2014 H/O dilation and curettage History of cholecystectomy Hx of laparoscopic gastric banding 2017 Family History Family History Father Hypercholesteremia Mother Alive and well Grandparent Malignant neoplasm of prostate Social History Social History Smoking packs per day: 1 Smoking cigarettes per day: 20.0 Years smoked: 4 Smoking pack-years: 4.00 Smoking status: Current every day smoker Tobacco type: cigarettes Second hand tobacco smoke exposure: No Alcohol intake: current Substance use: never Living arrangements: with family Occupation/Education: unemployed Gender identity (if verbalized by the patient): Female Sexual Orientation (if Verbalized by the Patient): Straight or Heterosexual Spiritual care concerns: No Comments At the time of my signature, I reviewed and agree with the nursing past medical, surgical, social, and family history. There is no relevant family history pertinent to the patient complaint. Exam Const: General: cooperative, healthy appearing, no acute distress and well nourished Nutritional Appearance: well nourished Orientation/con
== END 2023-03-02 14:06 | disposition home or self-care (01) ==
PROVIDERS: Emergency Provider Registered Nurse
DX: K04.7 Periapical abscess without sinus (principal); I10 Essential (primary) hypertension; F17.210 Nicotine dependence, cigarettes, uncomplicated; Z79.899 Other long term (current) drug therapy
CPT/HCPCS: 99213; G0463